=== PATIENT | female | born 1935 | race American Indian/Alaskan Native ===

== ENCOUNTER → 2016-10-31 | Outpatient (CLI) | payer OTHER, BC ==
--- NOTE | 2016-10-31 09:58 | MA ---
Screening Digital Mammogram With Tomosynthesis Clinical Indications: Routine screening. Personal history of right breast cancer. Technique: Standard digital cephalocaudal and tomosynthesis mediolateral oblique projections are obt ained. The digital images were processed by the [employer] computer aided detection system. Comparison: September 2015, August 2014, August 2013 and July 2012 Breast density: B; There are scattered fibroglandular densities. There is atherosclerotic vascular ca lcification. Findings: CAD was reviewed. Possibly a small developing nodule in the upper outer right breast at hema roximately the 10 o'clock radial. The remainder of the right and left breast are stable.. Impression: Possible small nodule upper outer right breast.. Recommendation: Diagnostic mammogram with spot compression views and a true lateral view. If persist ent, proceed to ultrasound at the discretion of the interpreting radiologist. BI-RADS 0. Additional imaging right breast. [facility] will send a result letter to the patient. Negative mammography should not preclude additional workup of a clinically suspicious finding. The patient's information is entered into a reminder system with a target due date for her next mammo gram.
== END ==
LOC: FIMAGING 08:54
DX: Z12.31 Encounter for screening mammogram for malignant neoplasm of breast (principal); Z85.3 Personal history of malignant neoplasm of breast
CPT/HCPCS: G0202

== ENCOUNTER → 2016-11-09 | Outpatient (CLI) | payer OTHER, BC ==
--- NOTE | 2016-11-09 14:23 | MA ---
Diagnostic Digital Mammogram Right Breast With iCAD Analysis Reason for examination: Evaluate possible developing asymmetry in the outer right breast noted on the screening tomographic study October 31, 2016. Technique: Oblique and craniocaudal spot compression views are obtained. Also, rolled medial and roll ed lateral craniocaudal and true lateral views are performed. The examination is processed by the [employer] computer-aided detection system. Findings: A subtle asymmetry does persist in the outer mid right breast. No suspicious calcifications are identified. A biopsy scar marker is noted in the region. Impression: Persistent asymmetry requires further evaluation, BI-RADS 0. Recommendation: Targeted right breast ultrasound which will be subsequently performed today. A verbal report was given to the patient. [facility] with send a result letter.
--- NOTE | 2016-11-09 16:00 | US ---
Right Breast Ultrasound History: Evaluate persistent asymmetry in the upper outer posterior right breast. Technique: Longitudinal and transverse images were obtained utilizing a 15 MHz transducer. Color Dopp ler evaluation is employed for assessment of vascularity. The examination is interpreted in conjunction with diagnostic mammography performed earlier today and screening breast tomography October 31, 2016. Findings: No palpable abnormality is present. At the 10 o'clock position, 6 cm from the nipple, there is a subtle hypoechoic area measuring 6 x 4 mm. This would correlate with the mammographic abnormali ty. Impression: Suspicious findings when considering mammographic and sonographic assessment, BI-RADS 4. Recommendation: Ultrasound-guided core biopsy. Findings and biopsy recommendations were reviewed with the patient in detail. She will be leaving for [place] for the next several months and will schedule the biopsy when she returns. Additionally, a p reliminary report was called to Dr. Martinez's office and they will fax a request for the biopsy to the imaging department at [facility]. [facility] will send a result letter to the patient.
== END ==
LOC: FIMAGING 13:35
PROVIDERS: ATTEND Internal Medicine Hematology & Oncology
DX: Z12.39 Encounter for other screening for malignant neoplasm of breast (principal); R92.2 Inconclusive mammogram
CPT/HCPCS: 76641; G0206

== ENCOUNTER → 2017-02-11 | Outpatient (CLI) | payer OTHER, BC ==
[~2017-02-11] MED LIST: BUPIVACAINE 0.5% 10 ML SDV ONE; LIDO/EPI 1% **Not for Epidural 20 ML MDV ONE; LIDOCAINE 1% 30 ML SDV ONE; NA BICARBONATE 50 MEQ/50 ML VIAL ONE; THROMBIN (BOVINE) 5,000 UNIT VIAL TP ONE
== END ==
LOC: FIMAGING 08:43
PROVIDERS: ATTEND Internal Medicine Hematology & Oncology
PROC: 0HBT3ZX Excision of Right Breast, Percutaneous Approach, Diagnostic (ICD-10-PCS; principal; 2017-02-11)
DX: C50.911 Malignant neoplasm of unspecified site of right female breast (principal)
CPT/HCPCS: 19083; 76641; 88305; 88341; 88342; 88360; 88361; G0206

== ENCOUNTER → 2017-03-06 | Day surgery (SDC) | payer OTHER, BC | END | disposition home or self-care (01) | LOC: FIMAGING 07:08 | PROVIDERS: ATTEND Radiology Diagnostic Radiology | PROC: BH00ZZZ Plain Radiography of Right Breast (ICD-10-PCS; principal; 2017-03-06) | PROC: 3E0W3KZ Introduction of Other Diagnostic Substance into Lymphatics, Percutaneous Approach (ICD-10-PCS; principal; 2017-03-06) | PROC: BH40ZZZ Ultrasonography of Right Breast (ICD-10-PCS; principal; 2017-03-06) | DX: C50.911 Malignant neoplasm of unspecified site of right female breast (principal) | CPT/HCPCS: 76098; 78195; A9520 ==

== ENCOUNTER → 2017-11-29 | Outpatient (CLI) | payer OTHER, BC | LOC: FIMAGING 08:34 | PROVIDERS: ATTEND Internal Medicine Hematology & Oncology | DX: Z12.31 Encounter for screening mammogram for malignant neoplasm of breast (principal); Z85.3 Personal history of malignant neoplasm of breast ==

== ENCOUNTER → 2019-02-09 | Outpatient (CLI) | payer OTHER, BC | LOC: FIMAGING 08:49 | PROVIDERS: ATTEND Internal Medicine Hematology & Oncology | DX: Z12.31 Encounter for screening mammogram for malignant neoplasm of breast (principal); Z85.3 Personal history of malignant neoplasm of breast ==